=== PATIENT | male | born 1955 | race Caucasian/White ===

== ENCOUNTER 2020-12-16 01:38 | Emergency (ER) | payer MEDICARE, OTHER ==
[~2020-12-16 01:38] MED LIST: ATORVASTATIN CA20 MG PO; Ventolin/Prove6.7 GM; Ventolin/Prove6.7 GM INH
== END 2020-12-16 04:27 | disposition left against medical advice (07) ==
LOC: ER 01:38
DX: Z53.21 Procedure and treatment not carried out due to patient leaving prior to being seen by health care provider (principal)

== ENCOUNTER 2020-12-19 12:01 | Emergency (ER) | payer MEDICARE, OTHER ==
[~2020-12-19] VITALS: Ht 160 cm; Wt 56.2 kg
== END 2020-12-19 14:29 | disposition home or self-care (01) ==
LOC: ER 12:01
DX: M54.5 Low back pain (principal); G89.29 Other chronic pain; F17.200 Nicotine dependence, unspecified, uncomplicated
CPT/HCPCS: 99282; 99283

== ENCOUNTER 2020-12-23 19:23 | Emergency (ER) | payer MEDICARE, OTHER ==
[~2020-12-23] VITALS: Ht 162.6 cm; Wt 55.1 kg
[2020-12-23] MEDS ORDERED: MELO7.5 PO (21:20)
== END 2020-12-23 21:45 | disposition home or self-care (01) ==
LOC: ER 19:23
DX: M54.5 Low back pain (principal); R06.02 Shortness of breath; F17.200 Nicotine dependence, unspecified, uncomplicated; E78.5 Hyperlipidemia, unspecified; Z79.899 Other long term (current) drug therapy
CPT/HCPCS: 71045; 72100; 99283-25; A9270

== ENCOUNTER 2020-12-24 12:09 | Emergency (ER) | payer MEDICARE, OTHER ==
[~2020-12-24] VITALS: Ht 170.2 cm; Wt 68.0 kg
[~2020-12-24 12:09] MED LIST changes: +MELO7.5 PO
== END 2020-12-24 12:34 | disposition home or self-care (01) ==
LOC: ER 12:09
DX: Z00.00 Encounter for general adult medical examination without abnormal findings (principal)
CPT/HCPCS: 99284

== ENCOUNTER 2020-12-24 15:45 | Emergency (ER) | payer MEDICARE, OTHER ==
[~2020-12-24] VITALS: Ht 167.6 cm; Wt 61.2 kg
== END 2020-12-24 16:20 | disposition home or self-care (01) ==
LOC: ER 15:45
DX: M54.9 Dorsalgia, unspecified (principal); G89.29 Other chronic pain
CPT/HCPCS: 99282

== ENCOUNTER 2020-12-26 22:23 | Emergency (ER) | payer OTHER, MEDICARE ==
[~2020-12-26] VITALS: Ht 160 cm; Wt 59.0 kg
== END 2020-12-26 23:50 | disposition home or self-care (01) ==
LOC: ER 22:23
DX: M54.6 Pain in thoracic spine (principal); M54.5 Low back pain; E78.5 Hyperlipidemia, unspecified; F17.200 Nicotine dependence, unspecified, uncomplicated
CPT/HCPCS: 99283

== ENCOUNTER 2020-12-27 20:12 | Emergency (ER) | payer OTHER, MEDICARE ==
[~2020-12-27] VITALS: Ht 162.6 cm; Wt 74.8 kg
== END 2020-12-27 20:30 | disposition home or self-care (01) ==
LOC: ER 20:12
DX: M54.9 Dorsalgia, unspecified (principal); F17.200 Nicotine dependence, unspecified, uncomplicated
CPT/HCPCS: 99283

== ENCOUNTER 2021-01-01 07:38 | Emergency (ER) | payer OTHER, MEDICARE ==
[~2021-01-01] VITALS: Ht 160 cm; Wt 59.0 kg
[2021-01-01] MEDS ORDERED: SERT20L (07:50)
[2021-01-01] MEDS ORDERED: DIVA250ER (07:50)
[2021-01-01] MEDS ORDERED: GABA400 (07:50)
[2021-01-01] MEDS ORDERED: MELO7.5 (07:50)
[2021-01-01] MEDS ORDERED: ABAT250V (07:51)
[2021-01-01] MEDS ORDERED: ALBU90OI INH (07:51)
[2021-01-01] MEDS ORDERED: SYMBICORT 80-10.2 GM (07:51)
[2021-01-01 08:51] LABS: Alanine Aminotransfer (ALT/SGP 54 U/L (12-78); Albumin, Blood 3.2 g/dL (3.4-5.0); Albumin/Globulin Ratio 0.7 (0.8-1.8); Alk Phos 105 U/L (50-136); Anion Gap 2 mmol/L (6-16); Aspartate Aminotrans (AST/SGOT 47 U/L (12-37); Bilirubin, Total 0.3 mg/dL (0.1-1.0); Blood Urea Nitrogen 28 mg/dL (8-24); Bun/Creatinine Ratio 53.3 (12.0-20.0); CO2, Blood 31 mmol/L (21-32); Calcium, Blood 9.1 mg/dL (8.5-10.1); Chloride, Blood 103 mmol/L (98-108); Creatinine, Blood 0.53 mg/dL (0.60-1.20); Ethanol (Alcohol), Blood, Med <3 mg/dL; Globulin, Blood 4.4 g/dL (2.2-4.0); Glomerular Filtration Rate >60 (60-); Glucose, Blood 110 mg/dL (70-99); Potassium, Blood 4.2 mmol/L (3.5-5.5); Sodium, Blood 136 mmol/L (136-145); Total Protein, Blood 7.6 g/dL (6.4-8.2)
[2021-01-01 08:52] LABS: BASOPHILS ABSOLUTE AUTO 0.03 K/mm3 (0.00-0.23); BASOPHILS PERCENT AUTO 1 % (0-2); EOSINOPHILS PERCENT AUTO 0 % (0-6); Hemoglobin 14.5 g/dL (13.5-17.5); IMMATURE GRAN ABSOLUTE AUTO 0.01 K/mm3 (0.00-0.10); IMMATURE GRAN PERCENT AUTO 0 % (0-1); LYMPHOCYTES ABSOLUTE AUTO 2.17 K/mm3 (0.84-5.20); LYMPHOCYTES PERCENT AUTO 34 % (21-46); MONOCYTES ABSOLUTE AUTO 0.44 K/mm3 (0.16-1.47); MONOCYTES PERCENT AUTO 7 % (4-13); Mean Corpuscular HGB Conc 32.2 g/dL (31.5-36.5); Mean Corpuscular Volume 93 fL (80-100); Mean Platelet Volume 9.6 fL (9.1-12.4); NEUTROPHILS PERCENT AUTO 58 % (41-73); Platelet Count 340 K/mm3 (150-400); RDW Coefficient Variation 14.7 % (11.7-14.2); RDW Standard Deviation 50.6 fL (35.1-46.3); Red Blood Cell Count 4.83 M/mm3 (4.30-5.90); White Blood Cell Count 6.35 K/mm3 (4.00-11.30)
== END 2021-01-01 11:25 | disposition home or self-care (01) ==
LOC: ER 07:38
PROVIDERS: Emergency Medicine
DX: T68.XXXA Hypothermia, initial encounter (principal); F17.200 Nicotine dependence, unspecified, uncomplicated; Z79.899 Other long term (current) drug therapy; Z59.0 Homelessness
CPT/HCPCS: 36415; 80053; 85025; 93005; 93010; 99284-25; G0480

== ENCOUNTER 2021-01-13 14:14 | Emergency (ER) | payer OTHER, MEDICARE ==
[~2021-01-13] VITALS: Ht 160 cm; Wt 54.4 kg
[~2021-01-13 14:14] MED LIST changes: +ABAT250V; +ALBU90OI INH; +DIVA250ER; +GABA400; +MELO7.5; +SERT20L; +SYMBICORT 80-10.2 GM
== END 2021-01-13 16:19 | disposition home or self-care (01) ==
LOC: ER 14:14
DX: M54.2 Cervicalgia (principal); F17.200 Nicotine dependence, unspecified, uncomplicated; Z79.899 Other long term (current) drug therapy
CPT/HCPCS: 72040; 99283-25

== ENCOUNTER 2021-01-14 02:45 | Emergency (ER) | payer MEDICARE ==
[~2021-01-14] VITALS: Ht 162.6 cm; Wt 63.5 kg
== END 2021-01-14 03:55 | disposition home or self-care (01) ==
LOC: ER 02:45
DX: M54.6 Pain in thoracic spine (principal); G89.29 Other chronic pain; F17.200 Nicotine dependence, unspecified, uncomplicated; Z79.899 Other long term (current) drug therapy; Z79.51 Long term (current) use of inhaled steroids
CPT/HCPCS: 99283; A9270